=== PATIENT | female | born 1970 | race African-American/Black ===

== ENCOUNTER 2019-08-07 10:28 | Emergency (ER) | payer MEDICAID, OTHER ==
[~2019-08-07] VITALS: Ht 165.1 cm; Wt 102.3 kg
[~2019-08-07 10:28] MED LIST: ASPI-556 PO; BENA5TAB26 PO; PERCT10 PO
[2019-08-07] MEDS ORDERED: PERTUSS(ACELL),DIPH,TET VAC/PF 0.5 ML VIAL IM ONE (10:45)
[2019-08-07] MEDS ORDERED: ACETAMINOPHEN 500 MG TABLET PO ONE (10:45)
[2019-08-07] MEDS ORDERED: BACITRACIN 0.9 GM PACKET OINTMENT TP ONE (10:45)
[2019-08-07] MEDS ORDERED: LIDOCAINE 1%/EPI 1:100,000 30 ML VIAL INJ ONE (10:45)
[2019-08-07] MEDS ORDERED: LIDOCAINE 1%/EPI 1:200,000/PF 10 ML VIAL INJ ONE (11:00)
[2019-08-07 13:43] VITALS: BP 125/72
== END 2019-08-07 13:47 | disposition home or self-care (01) ==
LOC: EMS 10:30
DX: S51.812A Laceration without foreign body of left forearm, initial encounter (principal); S09.90XA Unspecified injury of head, initial encounter; Z79.82 Long term (current) use of aspirin; Y04.2XXA Assault by strike against or bumped into by another person, initial encounter; Y93.89 Activity, other specified; Y92.89 Other specified places as the place of occurrence of the external cause; Y99.8 Other external cause status
CPT/HCPCS: 12004; 70450; 70486; 72125; 73090; 81025; 90471; 90715; 99285; J3490; 12002

== ENCOUNTER 2019-08-15 10:02 | Emergency (ER) | payer MEDICAID ==
[~2019-08-15] VITALS: Ht 165.1 cm; Wt 117.3 kg
[2019-08-15 10:44] VITALS: BP 119/77
== END 2019-08-15 10:49 | disposition home or self-care (01) ==
LOC: EMS 10:04
DX: S51.812D Laceration without foreign body of left forearm, subsequent encounter (principal); Z48.02 Encounter for removal of sutures; Z79.82 Long term (current) use of aspirin; Z79.899 Other long term (current) drug therapy; X58.XXXD Exposure to other specified factors, subsequent encounter

== ENCOUNTER 2023-12-14 17:32 | Emergency (ER) | payer MEDICAID ==
[~2023-12-14] VITALS: Ht 165.1 cm; Wt 111.0 kg
[~2023-12-14 17:32] MED LIST changes: -BENA5TAB26 PO; +BENA5TAB48 PO
[2023-12-14 17:42] VITALS: TEMP 98.2
[2023-12-14 18:23] LABS: BASOPHILS % (AUTO) 1.2 % (0.0-2.0); EOSINOPHILS % (AUTO) 2.8 % (1.0-6.0); HEMATOCRIT 33.7 % (36-46); HEMOGLOBIN 10.4 g/dL (12.0-16.0); LYMPHOCYTES # (AUTO) 2.1 K/uL (1.0-4.8); LYMPHOCYTES % (AUTO) 31.4 % (22.0-44.0); MEAN CORPUSCULAR HEMOGLOBIN 21.7 pg (26.0-34.0); MEAN CORPUSCULAR VOLUME 70 fL (80-100); MONOCYTES # (AUTO) 0.5 K/uL (0.1-1.0); MONOCYTES % (AUTO) 7.8 % (2.0-9.0); NEUTROPHILS # (AUTO) 3.8 K/uL (1.8-7.7); NEUTROPHILS % (AUTO) 56.8 % (40.0-70.0); PLATELET COUNT (AUTO) 506 K/uL (150-450); RED CELL DISTRIBUTION WIDTH 18.6 % (11.5-14.5); WHITE BLOOD COUNT (AUTO) 6.7 K/uL (4.5-11.0)
[2023-12-14 18:34] LABS: RBC MORPHOLOGY COMMENT ABNORMAL RBC MORPH
[2023-12-14 18:41] LABS: TROPONIN I-HIGH SENSITIVITY 21 ng/L (<51)
[2023-12-14 18:58] LABS: ANION GAP 10 mmol/L (8-16); CALCIUM, TOTAL 9.2 mg/dL (8.8-10.5); CARBON DIOXIDE 26 mmol/L (22-29); CHLORIDE 104 mmol/L (98-107); CREATININE 1.09 mg/dL (0.60-1.30); GLOMERULAR FILTR. RATE CALC > 60 mL/min (>60); GLUCOSE,RANDOM 106 mg/dL (70-110); POTASSIUM 3.5 mmol/L (3.5-5.1); SODIUM SERUM 140 mmol/L (136-145); UREA NITROGEN, BLOOD 12 mg/dL (7-18)
[2023-12-14 19:04] LABS: ALANINE AMINOTRANSFERASE 27 U/L (12-78); ALBUMIN 3.3 g/dL (3.4-5.0); ALKALINE PHOSPHATASE 112 U/L (46-116); ASPARTATE AMINOTRANSFERASE 26 U/L (15-37); BILIRUBIN,TOTAL 0.2 mg/dL (0.1-1.0); TOTAL PROTEIN, SERUM 7.4 g/dL (6.4-8.2)
[2023-12-14 20:32] VITALS: BP 123/63; PULSE 60; RESP 12
[2023-12-14] MEDS ORDERED: OMEP20 PO (20:48)
[2023-12-14] MEDS ORDERED: CORTSUSP AS (20:48)
== END 2023-12-14 20:55 | disposition home or self-care (01) ==
LOC: EMS 17:36
DX: K21.9 Gastro-esophageal reflux disease without esophagitis (principal); H60.92 Unspecified otitis externa, left ear; R07.89 Other chest pain; Z96.652 Presence of left artificial knee joint
CPT/HCPCS: 80053; 84484; 85025; 93005; 99284

== ENCOUNTER 2025-02-19 14:54 | Emergency (ER) | payer OTHER, MEDICAID ==
[~2025-02-19] VITALS: Ht 165.1 cm; Wt 110.0 kg
[~2025-02-19 14:54] MED LIST changes: +CORTSUSP AS; +OMEP-148 PO
[2025-02-19 15:03] VITALS: BP 153/89; PULSE 65; RESP 18; TEMP 97.6; O2SAT 96
[2025-02-19] MEDS ORDERED: ACET-3385 PO (15:30)
[2025-02-19] MEDS ORDERED: LIDO-57 TP (15:30)
[2025-02-19] MEDS ORDERED: IBUP-1492 PO (15:30)
[2025-02-19] MEDS: ACETAMINOPHEN 500 MG TABLET PO ONE (15:46)
[2025-02-19] MEDS: LIDOCAINE 5% TRANSDERMAL PATCH TD ONE (15:47)
[2025-02-19] MEDS: KETOROLAC TROMETHAMINE 30 MG/ML VIAL IM ONE (15:47)
== END 2025-02-19 16:23 | disposition home or self-care (01) ==
LOC: EMS 14:54
DX: S16.1XXA Strain of muscle, fascia and tendon at neck level, initial encounter (principal); I10 Essential (primary) hypertension; Z79.82 Long term (current) use of aspirin; V43.52XA Car driver injured in collision with other type car in traffic accident, initial encounter; Y92.410 Unspecified street and highway as the place of occurrence of the external cause; Y93.89 Activity, other specified; Y99.8 Other external cause status
CPT/HCPCS: 99283; 96372; J1885